=== PATIENT | male | born 1965 | race African-American/Black ===

== ENCOUNTER 2018-04-26 16:54 | Emergency (ER) | payer OTHER ==
[2018-04-26] MEDS: NAPROXEN 500 MG TABLET PO (18:19)
== END 2018-04-26 18:22 | disposition home or self-care (01) ==
LOC: ER 16:54
DX: S43.401A Unspecified sprain of right shoulder joint, initial encounter (principal); M19.011 Primary osteoarthritis, right shoulder; I10 Essential (primary) hypertension; X50.0XXA Overexertion from strenuous movement or load, initial encounter; Y93.89 Activity, other specified; Y99.8 Other external cause status; Y92.89 Other specified places as the place of occurrence of the external cause
CPT/HCPCS: 73030; 99284

== ENCOUNTER → 2018-06-15 | Outpatient (CLI) | payer OTHER | END | disposition home or self-care (01) | LOC: MRI 12:53 | DX: M47.892 Other spondylosis, cervical region (principal); M12.88 Other specific arthropathies, not elsewhere classified, other specified site; M25.78 Osteophyte, vertebrae; M48.02 Spinal stenosis, cervical region; I10 Essential (primary) hypertension | CPT/HCPCS: 72141 ==

== ENCOUNTER → 2019-04-13 | Outpatient (CLI) | payer OTHER ==
[2018-04-26 17:07] VITALS: BP 141/91
[~2019-04-13] MED LIST: CYCL10TA2 PO; METH4TAB2 PO; NAPR-514 PO
--- NOTE | 2019-04-13 16:44 | PCVCIMAG ---
APPROVED REPORT Study performed: 04/13/2019 11:11:35 EXAM: Comprehensive 2D, Doppler, and color-flow Echocardiogram Patient Location: Echo lab Room #: 3Status: routine BSA: 2.49 HR: 61 bpmBP: 136/86 mmHg Rhythm: NSR Other Information Study Quality: Adequate Risk Factors: Cardiac Risk Factors: HTN Indications Hypertension/HDD 2D Dimensions IVSd: 12.94 (7-11mm)LVOT Diam: 21.27 (18-24mm) LVDd: 52.70 mm PWd: 11.85 (7-11mm)Ascending Ao: 32.28 (22-36mm) LVDs: 36.90 (25-40mm) Left Atrium: 44.06 (27-40mm) Aortic Root: 28.54 mm LV Single Plane 4CH: 53.25 % LV Single Plane 2CH: 55.46 % Biplane EF: 55.2 % Volumes Left Atrial Volume (Systole) Single Plane 4CH: 81.75 mLSingle Plane 2CH: 66.88 mL Biplane LA Volume: 75.00 mLLA ESV Index: 30.00 mL/m2 Aortic Valve AoV Peak Jorge Luis.: 1.35 m/s AO Peak Gr.: 7.26 mmHgLVOT Max P.46 mmHg LVOT Max V: 0.93 m/s DICKSON Vmax: 2.45 cm2 Mitral Valve E/A Ratio: 2.5 MV Decel. Time: 84.42 ms MV E Max Jorge Luis.: 0.89 m/s MV A Jorge Luis.: 0.36 m/s IVRT: 96.89 ms Pulmonary Valve PV Peak Jorge Luis.: 0.77 m/sPV Peak Gr.: 2.37 mmHg Pulmonary Vein P Vein S: 0.49 m/sP Vein A: 0.35 m/s P Vein D: 0.37 m/sP Vein A Dur.: 114.2 msec P Vein S/D Ratio: 1.32 Tricuspid Valve TV Vmax: 0.49 m/s Left Ventricle The left ventricle is normal size. There is normal LV segmental wall motion. Mild concentric left ventricular hypertrophy. Left ventricular systolic function is normal. The left ventricular ejection fraction is within the normal range. LVEF is 55%. The left ventricular diastolic function is normal. Right Ventricle The right ventricle is normal size. The right ventricular systolic function is normal. Atria The left atrium size is normal. The right atrium size is normal. Aortic Valve Aortic valve is trileaflet. The aortic valve is normal in structure and function. No aortic regurgitation is present. There is no aortic valvular stenosis. Mitral Valve The mitral valve is normal in structure. Trace to mild mitral regurgitation. No evidence of mitral valve stenosis. Tricuspid Valve The tricuspid valve is normal in structure. No apparent pulmonary hypertension. There is no tricuspid valve regurgitation noted. Pulmonic Valve The pulmonary valve is normal in structure. There is no pulmonic valvular regurgitation. Great Vessels The aortic root is normal in size. The ascending aorta is normal in size. Aortic arch is normal in caliber. IVC is normal in size and collapses >50% with inspiration. Pericardium There is no pericardial effusion. There is no pleural effusion. <Conclusion> The left ventricle is normal size. LVEF is 55%. The left ventricular diastolic function is normal. The right ventricle is normal size. The left atrium size is normal. Aortic valve is trileaflet. The aortic valve is normal in structure and function. Trace to mild mitral regurgitation. Trace to mild mitral regurgitation. The aortic root is normal in size. There is no pericardial effusion.
== END | disposition home or self-care (01) ==
LOC: PCVCIMAG 10:50
PROVIDERS: ATTEND Internal Medicine Cardiovascular Disease
DX: I34.0 Nonrheumatic mitral (valve) insufficiency (principal); I10 Essential (primary) hypertension
CPT/HCPCS: 93306